=== PATIENT | female | born 1970 | race Caucasian/White ===

== ENCOUNTER 2020-12-01 13:26 | Emergency (ER) | payer OTHER | END 2020-12-01 15:25 | disposition home or self-care (01) | LOC: ER1 13:26 | DX: S90.01XA Contusion of right ankle, initial encounter (principal); I48.91 Unspecified atrial fibrillation; I51.9 Heart disease, unspecified; F17.200 Nicotine dependence, unspecified, uncomplicated; W22.8XXA Striking against or struck by other objects, initial encounter; Y92.009 Unspecified place in unspecified non-institutional (private) residence as the place of occurrence of the external cause | CPT/HCPCS: 73590; 73610; 99283 ==

== ENCOUNTER 2021-07-05 09:28 | Emergency (ER) | payer OTHER ==
[2021-07-05] MEDS ORDERED: AUGMENTIN 875-1 EACH PO (10:48)
== END 2021-07-05 10:59 | disposition home or self-care (01) ==
LOC: ER1 09:28
DX: S61.452A Open bite of left hand, initial encounter (principal); I48.91 Unspecified atrial fibrillation; F17.200 Nicotine dependence, unspecified, uncomplicated; Z23 Encounter for immunization; W54.0XXA Bitten by dog, initial encounter
CPT/HCPCS: 12001; 73130; 90471; 90715; 99283